=== PATIENT | female | born 1975 | race Caucasian/White ===

== ENCOUNTER 2016-10-13 12:55 | Emergency (ER) | payer MEDICARE ==
[~2016-10-13] VITALS: Ht 157.5 cm; Wt 48.2 kg
[~2016-10-13 12:55] MED LIST: CARI250T PO; CERT400K SQ; DICY20TA10 PO; LORA1TAB PO; ONDA4TAB9 PO; OXYC5CAP4 PO
[2016-10-13 12:57] VITALS: BP 125/79; PULSE 52; RESP 22; O2SAT 99
--- NOTE | 2016-10-13 13:14 | ED.REPORT ---
HPI-NVD Date of Service Oct 13, 2016 ED Provider: Dr. Preston Pt is a 40 y/o female w/ a hx of Crohn's disease, previous C. diff, presenting to the ED c/o nausea and vomiting onset 22:30 last night The patient went to her sister's birthday [employer] last night has been experiencing nausea and vomiting since last night. She c/o associated diffuse abdominal pain, bloody mucous diarrhea x1 episode today. Pt denies fever, chills. She has never experienced similar symptoms previously. She has a history of SBO which has previously presented with abdominal pain leading to vomiting, unlike this episode which began with vomiting. Nursing Notes Stated Complaint: VOMITING Chief Complaint: Female Abdominal Pain Nursing Notes Reviewed: Yes (Envoimoinscher, BDA not reconciled) Allergies: Coded Allergies: infliximab (Verified Allergy, Severe, 10/13/16) mesalamine (Verified Allergy, Severe, 10/13/16) venlafaxine (Verified Allergy, Severe, 10/13/16) Sulfa (Sulfonamide Antibiotics) (Verified Allergy, Unknown, HIVES, 10/13/16 ) Scheduled Ondansetron ODT (Zofran ODT) 4 Mg Tab.rapdis 4 MG PO PRN Scheduled PRN Dicyclomine (Dicyclomine) 20 Mg Tablet 20 MG PO PRN PRN PRN For GI Cramps Ondansetron ODT (Ondansetron ODT) 8 Mg Tab.rapdis 8 MG PO Q4H PRN PRN For Nausea oxyCODONE (oxyCODONE) 5 Mg Capsule 5 MG PO Q4H PRN PRN For Pain General Time Seen by MD: 13:12 Chief Complaint Nausea, Vomiting Hx Obtained From: Patient Arrived By: Walk-in Onset Occurred: 9 - 12 hours ago Symptom Duration: Since onset Location: : Diffuse Quality: Painful Severity: Current: Moderate Severity: Maximum: Moderate Similar Sx Previous: No Past Medical History Past Medical History Notes: As of 10/13/16, last prior ED visit was 2015 GI physician at [facility] Past Medical History Crohn's disease Hx prior C-Diff Hx ankylosing spondylitis Hx SBO Right ovarian cyst Hx pyelonephritis Depression and anxiety Past Surgical History Partial ileal resection Reports: Appendectomy, Reports: Tubal ligation Family History none reported Smoking History Never Smoker Social History Alcohol Use: Denies alcohol use Drug Use: Denies drug use Ambulatory Status Independent Review of Systems Constitutional: Denies: Chills, Fever GI: Reports: Abdominal pain, Diarrhea, Mucousy stool, Nausea, Vomiting, Denies: Constipation, Hematemesis, Melena Complete sys rev & neg: except as marked. Respiratory: Denies: Non-productive cough, Shortness of breath Cardiovascular: Denies: Chest pain, Dyspnea on exertion Physical Exam Initial Vital Signs Vital Signs (First) Date Time Temp Pulse Resp B/P Pulse Ox O2 Delivery O2 Flow Rate FiO2 10/13/16 12:57 36.6 52 22 125/79 99 Room Air Initial VS: Reviewed, Vital signs normal Head / Eyes: Atraumatic, Normocephalic, PERRL ENT: Mucous membranes moist, Conjunctiva normal, No scleral icterus Neck: Supple, Full range of motion Respiratory: Breath sounds normal, Clear to auscultation, No respiratory distress Cardiovascular: Regular rate & rhythm, Heart sounds normal, Intact distal pulses Extremities: Vascular intact, Neuro intact, No swelling Neurologic: Alert, Oriented, Nonfocal Psychiatric: Mood/affect normal, Behavior normal, Normal thought content General/Constitutional: Awake, Alert, Cooperative, Not toxic appearing Distress / Hydration: Positive: Distress mild Appears fatigued Abdomen: Atraumatic, Soft, Non-tender, No guarding, No rebound, BS normoactive , No distention, No palpable mass Repeatedly retching Skin: Atraumatic, Color NL, No rash, Warm, Dry, Intact, Turgor NL, No swelling Interpretation & Diagnostics Lab Results Interpretation Result Diagram: 10/13/16 1340 10/13/16 1340 Test 10/13/16 13:40 White Blood Count 10.5th/mm3 (3.8-10.1) Red Blood Count 4.60mil/mm3 (3.90-5.20) Hemoglobin 13.4g/dL (12.0-15.6) Hematocrit 38.6% (35.0-46.0) Mean Corpuscular Volume 83.9fL (81-100) Mean Corpuscular Hemoglobin 29.1pg (27.0-35.0) Mean Corpuscular Hemoglobin Concent 34.7% (32.0-37.0) Red Cell Distribution Width 13.3% (12.3-15.4) Platelet Count 357bil/L (150-400) Neutrophils (%) (Auto) 90.2% (40-74) Lymphocytes (%) (Auto) 6.5% (14-46) Monocytes (%) (Auto) 2.9% (4-12) Eosinophils (%) (Auto) 0% (0-5) Basophils (%) (Auto) 0.2% (0-3) Erythrocyte Sedimentation Rate 8mm/hr (0-32) Sodium Level 142mEq/L (134-144) Potassium Level 3.3mEq/L (3.5-5.2) Chloride Level 102mEq/L (97-108) Carbon Dioxide Level 18mmol/L (18-29) Blood Urea Nitrogen 10mg/dL (6-24) Creatinine 0.56mg/dL (0.57-1.00) Estimat Glomerular Filtration Rate 172mL/min (>59) Glucose Level 142mg/dL (60-99) Calcium Level 9.4mg/dL (8.5-10.1) Total Bilirubin 0.7mg/dL (0.0-1.2) Aspartate Amino Transf (AST/SGOT) 16U/L (0-50) Alanine Aminotransferase (ALT/SGPT) 11U/L (0-32) Alkaline Phosphatase 59U/L (25-150) Total Protein 7.9g/dL (6.4-8.4) Albumin 4.3g/dL (3.4-5.0) Human Chorionic Gonadotropin, Qual Negative (Negative) Hold Lr Top Tube Received (Received) Lab Results Interpretation: CBC marginal elevation of uncertain clinical significance Sedimentation rate normal negative Re-Eval/Medical Decision Med Decision/Clinical Course This is a 40-year-old female with Crohn's developed nausea vomiting started last night and vomited all night. She states this does not feel like her Crohn she has not had a fever, and it turns out while she is in the records from she has heard multiple other people or at a wedding of also developed a GI illness. Due to intractable nausea vomiting she presented. She denies abdominal pain except from the retching. She does Appear fatigued, and is repeatedly retching. But has a soft nontender abdomen. She is afebrile and otherwise nontoxic. She had IV placed and received hydration and antiemetics and symptoms improved. Blood work was normal. She has no signs of acute surgical abdomen and no clinical findings today in the necessity to abdominal imaging. She received Hydration she appears much improved. She is able tolerate an oral challenge, and is being discharged tomorrow and oral ondansetron. At this point a foodborne illness seems most likely, but at about line a no markers are findings are more dangerous process to require additional testing. The patient' s couple discharged home. She is discharged in much improved condition Source of Hx: Old records Re-Evaluation/Progress : Time of Eval: 16:00 Re-Evaluation/Progress Note: Pt rechecked. Feeling better. Will start oral challenge. Differential Diagnosis: Positive: Crohn's disease, Negative: Appendicitis, Boerhaave syndrome, Bowel obstruction, C. diff colitis, Drug overdose, Drug toxicity, Drug-med reaction, Enteritis, Food poisoning, Inflam bowel disease, Leslie-De Leon syndrome, Meniere's disease, Migraine headache, Pancreatitis, Peptic ulcer disease, , Ulcerative colitis Counseled Regarding: Diagnosis, Lab results, Need for follow-up, When/why to return to ED Discharge & Departure Impression: Primary Impression: Vomiting Vomiting type: unspecified Vomiting Intractability: unspecified Nausea presence: unspecified Qualified Code: R11.10 - Vomiting, unspecified Disposition: Home Discharge Condition All VS Reviewed: Yes Condition: Stable Referrals: Jorge Narayanan MD (PCP) Marysol Attestation Portions of this note were transcribed by Fabian Sutherland. I, Dr. Preston personally performed the history, physical exam and medical decision-making; I reviewed and confirmed the accuracy of the information in the transcribed note. Signed by Marysol Spence, 10/13/16 - 1326 copies to: Jorge Narayanan MD, Matthew F MD Oct 13, 2016 13:14 FABIAN SUTHERLAND Oct 13, 2016 13:23
[2016-10-13] MEDS ORDERED: 0.9% Sodium Chloride 1,000 ML IV ONE ×3 (13:15→16:35)
[2016-10-13] MEDS ORDERED: Promethazine Inj 25 MG in 0.9% Sodium Chloride-Pha MIX 100 ML IV ONE (13:15)
[2016-10-13] MEDS ORDERED: Ondansetron 2 mg/mL 2 mL Inj IVPUSH ONE ×2 (13:25→16:40)
[2016-10-13] MEDS: HYDROmorphone 1 mg/mL Inj IVPUSH PRN ×4 (13:44→19:22)
[2016-10-13 13:49] LABS: BASOPHILS % (AUTO) 0.2 % (0-3); EOSINOPHILS % (AUTO) 0 % (0-5); MONOCYTES % (AUTO) 2.9 % (4-12); Mean Corpuscular Hemoglobin 29.1 pg (27.0-35.0); Mean Corpuscular Volume 83.9 fL (81-100); NEUTROPHILS % (AUTO) 90.2 % (40-74); Platelet Count 357 bil/L (150-400)
[2016-10-13 14:11] LABS: ERYTHROCYTE SEDIMENTATION RATE 8 mm/hr (0-32)
[2016-10-13 16:30] VITALS: BP 108/61; PULSE 75; RESP 20; O2SAT 98
[2016-10-13] MEDS ORDERED: ONDA8TAB10 PO (17:09)
[2016-10-13] MEDS ORDERED: _Ondansetron ODT 4 mg Tablet PO PRN (17:50)
[2016-10-13 19:23] VITALS: BP 111/53; PULSE 76; RESP 16; O2SAT 98
== END 2016-10-13 19:25 | disposition home or self-care (01) ==
LOC: SED 12:55
DX: R11.10 Vomiting, unspecified (principal); K52.9 Noninfective gastroenteritis and colitis, unspecified; Z88.2 Allergy status to sulfonamides; Z88.8 Allergy status to other drugs, medicaments and biological substances
CPT/HCPCS: 36415; 80053; 84703; 85025; 85651; 96361; 96374; 96375; 96376; 99284; J1170; J1200; J2405; J2550; J7030